=== PATIENT | male | born 1955 | race Caucasian/White ===

== ENCOUNTER 2018-10-03 15:09 | Observation (INO) | payer MEDICAID, OTHER ==
[2018-10-03 15:32] LABS: #Basophils 0.1 thou/uL (0.0-0.2); #Eosinphils 0.2 thou/uL (0.0-0.7); #Monocytes 0.4 thou/uL (0.11-0.59); #Neutrophils 4.5 thou/uL (1.40-6.50); %Basophils 0.9 % (0.0-1.0); %Eosinophils 3.2 % (0.0-10.0); %Lymphocytes 27.6 % (21.0-51.0); %Monocytes 6.1 % (0.0-10.0); %Neutrophils 62.2 % (42.0-75.0); Hemoglobin 14.9 g/dL (14.0-18.0); Mean Corpuscular HGB CONC 34.3 g/dL (32.0-36.0); Mean Corpuscular Hemoglobin 31.7 pg (27.0-31.0); Mean Corpuscular Volume 92.4 fL (78.0-98.0); Platelet Count 148 thou/uL (130-400); RBC Distribution Width 12.3 % (11.5-14.5); Red Blood Cell (RBC) Count 4.71 mill/uL (4.70-6.10); White Blood Cell (WBC) Count 7.3 thou/uL (4.8-10.8)
[2018-10-03 15:52] LABS: ALT (SGPT) 29 U/L (8-55); AST (SGOT) 23 U/L (5-34); Alkaline Phosphatase 79 U/L (40-150); Anion Gap 12 mmol/L (10-20); BUN (Urea Nitrogen) 12 mg/dL (8.4-25.7); Bilirubin, Total 1.1 mg/dL (0.2-1.2); CK (CPK) 69 U/L (30-200); Calc. Creatinine Clearance 0 mL/min (70-130); Calcium 9.3 mg/dL (7.8-10.44); Carbon Dioxide 26 mmol/L (23-31); Chloride 101 mmol/L (98-107); Estimated GFR-MDRD 72; Globulin 4.1 g/dL (2.4-3.5); Glucose 133 mg/dL (80-115); Lipase 21 U/L (8-78); Potassium 3.8 mmol/L (3.5-5.1); Protein, Total 8.1 g/dL (5.8-8.1); Sodium 135 mmol/L (136-145)
--- NOTE | 2018-10-03 15:57 | RAD ---
CHEST 1 VIEW: Date: 10/03/18 HISTORY: Chest pain. COMPARISON: None. FINDINGS: Lungs are clear. No pneumothorax or effusion. Cardiac silhouette and mediastinal contours within norm al limits. IMPRESSION: No acute intrathoracic abnormality. POS: [facility]
[2018-10-03] MEDS ORDERED: Iopamidol 370 76% 100 ML VIAL ONE (17:09)
[2018-10-03] MEDS ORDERED: Nitroglycerin 2% Ointment 1 INCH/1 GM Packet ONE (18:25)
--- NOTE | 2018-10-03 19:49 | CT ---
CTA CHEST WITH CONTRAST WITH 3D VOLUME RENDERING 10/03/18 No prior imaging comparison. INDICATION: Epigastric and substernal chest pain. FINDINGS: There is limited evaluation of the pulmonary arteries due to a generalized heterogeneous contrast kwame us. No definite large focal filling defect identified. No lobar consolidation of either lung. No evid ence of pleural effusion or pneumothorax. Thoracic aorta is of normal caliber. There is incidental no te of a cirrhotic morphology of the liver. There are rounded/ovoid regions of hypodensity involving t he left hepatic lobe which demonstrate Hounsfield units of cysts, although are incompletely assessed on the basis of this exam. There is a generalized heterogeneous density of the imaged portions of the cirrhotic liver. Scattered osseous degenerative changes. IMPRESSION: 1. Generalized heterogeneity of the contrast bolus does limit the evaluation for detection of pu lmonary emboli. No definite large central filling defect identified within limitations. 2. Incidental note of cirrhotic morphology with hypodensities demonstrating Hounsfield units of cysts and a diffuse heterogeneous density of the liver. Recommend followup with gastroenterology cons ultation as well as dedicated imaging followup. Code T POS: [facility]
[2018-10-03] MEDS ORDERED: Acetaminophen 325 MG TAB PO PRN ×3 (20:30→22:19)
[2018-10-03 20:33] VITALS: BMI 43.4
[2018-10-03 21:03] LABS: Cardiac Risk 5.9 (Less than 4.5)
[2018-10-03 21:09] LABS: Troponin I Less than 0.010 ng/mL (< 0.028)
[2018-10-03] MEDS ORDERED: Senokot S 8.6-50 MG TAB PO PRN (22:11)
[2018-10-03] MEDS ORDERED: Dextrose 5% in Water 1,000 ML IV PRN (22:11)
[2018-10-03] MEDS ORDERED: Nitroglycerin 0.4 MG TAB (25 Tab Bottle) PO PRN (22:11)
[2018-10-03] MEDS ORDERED: Dextrose 50% Abboject 50 ML SYRINGE SLOW IVP PRN (22:11)
[2018-10-03] MEDS ORDERED: Guaifenesin DM 100-10/5 ML UDCUP PO PRN (22:11)
[2018-10-03] MEDS ORDERED: Ondansetron ODT 4 MG TAB SL PRN (22:21)
[2018-10-03] MEDS ORDERED: Ondansetron PF 4 MG/2 ML Vial IVP PRN (22:21)
[2018-10-03] MEDS ORDERED: hydrALAZINE 20 MG/ML VIAL SLOW IVP PRN (22:22)
[2018-10-03] MEDS ORDERED: Pantoprazole 40 MG VIAL IVP SCH (22:30)
[2018-10-03] MEDS ORDERED: Morphine 4 MG/ML VIAL SLOW IVP SCH (22:30)
[2018-10-03] MEDS: Albuterol Sulfate 1.25 MG/3 ML NEB NEB SCH (22:50)
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
[2018-10-04 07:15] LABS: Anion Gap 12 mmol/L (10-20); BUN (Urea Nitrogen) 12 mg/dL (8.4-25.7); Calc. Creatinine Clearance 186 mL/min (70-130); Calcium 8.8 mg/dL (7.8-10.44); Carbon Dioxide 25 mmol/L (23-31); Cardiac Risk 5.9 (Less than 4.5); Chloride 102 mmol/L (98-107); Cholesterol 154 mg/dl (< 200 Desired); Estimated GFR-MDRD 89; Glucose 98 mg/dL (80-115); HDL Cholesterol 26 mg/dL (>60 Neg Risk); LDL Cholesterol, Calculated 100 mg/dL; Potassium 3.3 mmol/L (3.5-5.1); Sodium 136 mmol/L (136-145); Triglycerides 138 mg/dL (Less than 150)
[2018-10-04 07:34] LABS: #Eosinphils 0.2 thou/uL (0.0-0.7); #Lymphocytes 1.6 thou/uL (1.20-3.40); #Monocytes 0.4 thou/uL (0.11-0.59); #Neutrophils 2.9 thou/uL (1.40-6.50); %Basophils 0.2 % (0.0-1.0); %Eosinophils 3.2 % (0.0-10.0); %Lymphocytes 31.3 % (21.0-51.0); %Monocytes 7.3 % (0.0-10.0); Hemoglobin 13.5 g/dL (14.0-18.0); MDiff Complete? YES; Mean Corpuscular HGB CONC 34.2 g/dL (32.0-36.0); Mean Corpuscular Hemoglobin 31.6 pg (27.0-31.0); Mean Corpuscular Volume 92.4 fL (78.0-98.0); Mean Platelet Volume 8.5 fL (7.4-10.4); PLT Morphology Comment Appears Decreased; Platelet Count 109 thou/uL (130-400); RBC Distribution Width 12.3 % (11.5-14.5); Red Blood Cell (RBC) Count 4.27 mill/uL (4.70-6.10)
[2018-10-04] MEDS: Albuterol Sulfate 1.25 MG/3 ML NEB NEB SCH ×3 (07:47→23:47)
[2018-10-04] MEDS ORDERED: Potassium Chloride 20 MEQ TAB PO SCH (08:00)
[2018-10-04] MEDS: Pantoprazole 40 MG VIAL IVP SCH ×2 (08:05→21:13)
[2018-10-04] MEDS: Aspirin 325 MG TAB PO SCH (08:06)
[2018-10-04] MEDS: busPIRone HCl 5 MG TAB PO SCH ×3 (08:06→21:07)
[2018-10-04] MEDS: levETIRAcetam 500 MG TAB PO SCH (08:06)
[2018-10-04] MEDS: Venlafaxine HCl XR 150 MG CAP PO SCH (08:06)
[2018-10-04] MEDS: Enoxaparin Sodium 40 MG/0.4 ML SYRINGE SC SCH (08:07)
[2018-10-04] MEDS ORDERED: levETIRAcetam 500 mg/5 ml Oral Solution PO SCH (09:00)
[2018-10-04] MEDS ORDERED: Metoprolol Tartrate 25 MG TAB PO SCH (09:00)
[2018-10-04] MEDS ORDERED: Regadenoson 0.4 MG/5 ML SYRINGE ONE (09:25)
[2018-10-04] MEDS: Propranolol 40 MG TAB PO SCH ×2 (12:07→21:10)
[2018-10-04] MEDS: metFORMIN 500 MG TAB PO SCH ×2 (12:07→12:13)
[2018-10-04] MEDS: HumaLOG 300 UNITS/3 ML VIAL SC PRN ×2 (12:08→17:16)
[2018-10-04] MEDS: glipiZIDE 10 MG TAB PO SCH (12:08)
--- NOTE | 2018-10-04 16:58 | PDOC.PN ---
- Subjective Encounter Start Date: 10/04/18 Encounter Start Time: 16:43 Patient lying in bed, he reports feeling better. Pain is improved. Denies n/v/ d. He underwent first half of stress test this morning. - Objective Resuscitation Status - Order Detail: 10/03/18 22:08 Resuscitation Status Routine Resuscitation Status: FULL: Full Resuscitation MAR Reviewed: Yes Vital Signs & Weight: Vital Signs (12 hours) Temp Pulse Resp BP BP Pulse Ox 10/04/18 15:35 58 L 18 130/80 10/04/18 15:04 60 20 94 L 10/04/18 15:02 98.3 F 60 12 195/92 H 93 L 10/04/18 12:00 97.8 F 72 18 154/80 H 93 L 10/04/18 08:30 97.7 F 59 L 20 156/88 H 97 10/04/18 07:53 96 10/04/18 07:47 62 20 96 10/04/18 04:58 98.2 F 57 L 18 151/78 H 92 L Weight Weight 329 lb 6.4 oz I&O: 10/03/18 10/04/18 10/05/18 06:59 06:59 06:59 Intake Total 660 240 Output Total 400 803 Balance 260 -563 Result Diagrams: 10/04/18 06:18 10/04/18 06:17 Additional Labs: Accuchecks 10/04/18 10/04/18 10/03/18 11:08 04:58 20:48 POC Glucose 249 H 90 101 Radiology Reviewed by me: Yes EKG Reviewed by me: Yes Phys Exam - Physical Examination HEENT: PERRLA, moist MMs, sclera anicteric, oral pharynx no lesions Neck: no nodes, no JVD, full ROM Respiratory: no wheezing, no rales, no rhonchi, clear to auscultation bilateral Cardiovascular: RRR, no significant murmur, no rub Gastrointestinal: soft, non-tender, no distention, positive bowel sounds Musculoskeletal: no edema, pulses present Neurological: non-focal, normal sensation, moves all 4 limbs Lymphatic: no nodes Psychiatric: normal affect, A&O x 3 Skin: no rash, normal turgor, cap refill <2 seconds Dx/Plan (1) Hypertension Code(s): I10 - ESSENTIAL (PRIMARY) HYPERTENSION Status: Acute (2) Chest pain Code(s): R07.9 - CHEST PAIN, UNSPECIFIED Status: Acute (3) Diabetes Code(s): E11.9 - TYPE 2 DIABETES MELLITUS WITHOUT COMPLICATIONS Status: Acute (4) Seizure disorder Code(s): G40.909 - EPILEPSY, UNSP, NOT INTRACTABLE, WITHOUT STATUS EPILEPTICUS Status: Acute - Plan cont current plan of care, DVT proph w/lovenox, DVT proph w/SCDs * Continue current medical management * Await second part of stress test * Continue to monitor sugars, labs and vitals * Further changes pending clinical findings
[2018-10-04] MEDS ORDERED: Amlodipine 5 MG TAB PO SCH (21:15)
[2018-10-04] MEDS ORDERED: traMADol HCl 50 MG TAB PO PRN (21:15)
[2018-10-05] MEDS: Venlafaxine HCl XR 150 MG CAP PO SCH (08:43)
[2018-10-05] MEDS: Aspirin 325 MG TAB PO SCH (08:43)
[2018-10-05] MEDS: Pantoprazole 40 MG VIAL IVP SCH (08:43)
[2018-10-05] MEDS: busPIRone HCl 5 MG TAB PO SCH (08:43)
[2018-10-05] MEDS: levETIRAcetam 500 MG TAB PO SCH (08:43)
[2018-10-05] MEDS: Enoxaparin Sodium 40 MG/0.4 ML SYRINGE SC SCH (08:43)
[2018-10-05] MEDS: metFORMIN 500 MG TAB PO SCH (08:44)
[2018-10-05] MEDS: glipiZIDE 10 MG TAB PO SCH (08:44)
[2018-10-05] MEDS ORDERED: Amlodipine 5 MG TAB PO SCH (09:00)
--- NOTE | 2018-10-05 09:34 | NM ---
NUCLEAR MEDICINE CARDIAC PERFUSION EXAMINATION WITH EJECTION FRACTION. HISTORY: A 63-year-old male with chest pain, hypertension, and diabetes. TECHNIQUE: A nuclear medicine cardiac perfusion examination was performed in standard fashion. Rest images were obtained using 33 mCi of Technetium 99m sestamibi. Stress images were obtained using 30.5 mCi of Te chnetium 99m sestamibi and LexiScan. FINDINGS: Tomographic images showed no fixed or reversible perfusion defects. Gated images show normal wall mo tion with an ejection fraction of 69%. EDV is 125 mL. LHR is 0.4. TID is 1.06. IMPRESSION: No evidence of ischemia. POS: [facility]
[2018-10-05] MEDS: Albuterol Sulfate 1.25 MG/3 ML NEB NEB SCH (09:51)
[2018-10-05 12:13] VITALS: BP 176/83; TEMP 97.5
--- NOTE | 2018-10-06 05:29 | DIS ---
DATE OF ADMISSION: 10/03/2018 DATE OF DISCHARGE: 10/05/2018 DISCHARGE DIAGNOSES: 1. Chest pain, noncardiac. 2. Diabetes mellitus type 2, stable. 3. Obesity, stable. 4. Generalized seizures, stable. 5. Anxiety disorder, stable. CONSULTATIONS: None. LABORATORY DATA: WBC 5.0, RBC 4.27, hemoglobin 13.5, platelet 109. D-dimer 0.44 on admission, sodium 136, potassium 3.3, anion gap 12, creatinine 0.87, estimated GFR 89, glucose 188 prior to discharge. Triglycerides 138, cholesterol 154, LDL 100 , HDL 26. Lipase 21. Troponin less than 0.010 x2. BNP 40.3. AST 23, ALT 29. PROCEDURES: Cardiolite stress test, which showed no fixed or reversible perfusion defects with normal wall motion with an ejection fraction of 69%. No evidence of ischemia. DIAGNOSTIC IMAGING: Chest x-ray showed no acute intrathoracic abnormality. CTA chest with contrast showed no definite large focal filling defect with no lobar consolidation of either lung, no evidence of a pleural effusion or pneumothorax, there was an incidental finding of a cirrhotic morphology with hypodensities demonstrating Hounsfield units of cyst, diffuse heterogeneous density of the liver with a recommended followup with Gastroenterology consultation as well as dedicated imaging followup. HOSPITAL COURSE: Mr. Orellana is a pleasant 63-year-old male who had presented to [facility] with complaints of retrosternal chest pain that started the morning of 10/03/2018, he had stated that he had some Cheetos the night prior. He had stated that the pain seemed to worsen with movement along with cough and deep breathing. He denied any fever or chills. He had denied any shortness of breath or further abdominal pain. He denied any nausea or vomiting. He had denied any prior cardiac workup in the past. He was started on IV Protonix during hospital course and seemed to tolerate well. Chest x-ray was obtained and found no abnormalities at this time. CTA of chest was also performed and showed no evidence of a central pulmonary emboli or no infiltrates. Cardiac enzymes were found to be normal x2. There was incidental finding on CTA for a cirrhotic morphology in his liver, it was recommended that he follow up with primary care physician and seek a referral to Gastroenterology as outpatient. He had verbalized his understanding of this. During hospital course, his chest pain resolved with the use of Protonix 40 mg, and it was recommended he stay on this post discharge. His home medication of Propranolol was discontinued and he was started on Amlodipine 5mg. He underwent a 2-day nuclear stress test, which found no fixed or reversible perfusion defects. It also showed a normal wall motion and ejection fraction of 69%. He was seen and examined prior to discharge. He had no further complaints of chest pain, shortness of breath, or abdominal pain. He was educated on his discharge plan and to follow up with his primary care physician in 1 to 2 weeks. He was also instructed to continue on Protonix twice daily. Due to the patient's risk factors, he was placed on aspirin 81 mg daily and tolerated well throughout hospital course. He was also explained to continue this as outpatient. He had verbalized his understanding for discharge plan and he was deemed medically stable for discharge home on 10/05/2018. DISCHARGE MEDICATIONS: 1. Amlodipine 5mg p.o. daily. 2. Metformin 1000 mg p.o. daily. 3. Levetiracetam 750 mg p.o. daily. 4. Glipizide 10 mg p.o. daily. 5. Buspirone 15 mg p.o. t.i.d. 6. Venlafaxine 150 mg p.o. daily. 7. Aspirin 81 mg daily. 8. Protonix 40 mg p.o. twice daily. FOLLOWUP: The patient is to follow up with his primary care physician Dr. Michael Heller in 1 to 2 weeks. CONDITION ON DISCHARGE: Stable. ACTIVITY: As tolerated. DIET: Diabetic. DISPOSITION: Home on 10/05/2018. Job ID: [id number] [facility]
--- NOTE | 2018-10-10 23:00 | EKG ---
Test Reason : CP Blood Pressure : / mmHG Vent. Rate : 059 BPM Atrial Rate : 059 BPM P-R Int : 178 ms QRS Dur : 098 ms QT Int : 452 ms P-R-T Axes : 015 -19 058 degrees QTc Int : 447 ms Sinus bradycardia Otherwise normal ECG Confirmed by RYANN ALMAGUER, ALEX ([id number]), visual effects editor JOSE DENNY ([id number]) on 10/10/2018 10:59:03 PM Referred By: Confirmed By:ALEX GARZON MD
== END 2018-10-05 14:33 | disposition home or self-care (01) ==
LOC: ERS 15:09 → 2SW 20:14
PROVIDERS: ADMIT Family Medicine; ATTEND Family Medicine
DX: R07.89 Other chest pain (principal); E11.9 Type 2 diabetes mellitus without complications; E66.9 Obesity, unspecified; Z68.41 Body mass index [BMI] 40.0-44.9, adult; G40.909 Epilepsy, unspecified, not intractable, without status epilepticus; F41.9 Anxiety disorder, unspecified; Z88.1 Allergy status to other antibiotic agents; Z90.89 Acquired absence of other organs; Z79.84 Long term (current) use of oral hypoglycemic drugs; Z79.82 Long term (current) use of aspirin; Z79.899 Other long term (current) drug therapy
CPT/HCPCS: 36415; 36416; 71045; 71275; 78452; 80048; 80053; 80061; 82550; 83690; 83880; 84484; 85025; 85379; 90471; 90686; 90732; 93005; 93017; 94640; 94760; 96360; 96361; 96372; 96374; 96375; 96376; A9500; C9113; G0008; G0009; G0378; J1650; J2270; J2785

== ENCOUNTER 2019-01-24 19:29 | Emergency (ER) | payer OTHER ==
[2019-01-24 21:38] LABS: ALT (SGPT) 29 U/L (8-55); AST (SGOT) 22 U/L (5-34); Albumin 4.1 g/dL (3.4-4.8); Alkaline Phosphatase 94 U/L (40-150); Anion Gap 15 mmol/L (10-20); BUN (Urea Nitrogen) 25 mg/dL (8.4-25.7); Bilirubin, Total 0.7 mg/dL (0.2-1.2); Calc. Creatinine Clearance 0 mL/min (70-130); Calcium 9.9 mg/dL (7.8-10.44); Carbon Dioxide 27 mmol/L (23-31); Chloride 100 mmol/L (98-107); Estimated GFR-MDRD 43; Globulin 4.2 g/dL (2.4-3.5); Glucose 148 mg/dL (80-115); Potassium 4.5 mmol/L (3.5-5.1); Protein, Total 8.3 g/dL (5.8-8.1); Sodium 137 mmol/L (136-145)
--- NOTE | 2019-01-24 23:08 | CT ---
CT NECK SOFT TISSUES WITH IV CONTRAST: History: Spider bite two days ago. Pain in the right side of the neck. FINDINGS: There is induration of the subcutaneous fat and skin thickening in the right mid and lower neck. No a bnormally large fluid collections seen to suggest abscess formation. The carotid and submandibular glands are normal. No cervical lymphadenopathy is seen. The visualized paranasal sinuses are well aerated. The airway is patent. There is a 9 mm low density lesion in the left lobe of the parotid gland which would be better evaluated with an ultrasound. 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 There are degenerativ e changes in the spine. Upper lung owen are unremarkable. IMPRESSION: Cellulitis in the right side of the neck without evidence of abscess formation. This exam was interpreted in consultation with Dr Rl Peralta (neurorad) who concurs. POS: [facility]
== END 2019-01-24 23:25 | disposition home or self-care (01) ==
LOC: ERS 19:29
DX: L02.11 Cutaneous abscess of neck (principal); F41.9 Anxiety disorder, unspecified; F32.9 Major depressive disorder, single episode, unspecified; E11.9 Type 2 diabetes mellitus without complications; I10 Essential (primary) hypertension; E66.9 Obesity, unspecified; Z87.891 Personal history of nicotine dependence
CPT/HCPCS: 10060; 36415; 70490; 80053

== ENCOUNTER 2019-04-10 23:56 | Emergency (ER) | payer OTHER ==
[2019-04-11] MEDS ORDERED: Ondansetron PF 4 MG/2 ML Vial ONE (00:37)
[2019-04-11] MEDS ORDERED: Loperamide HCl 2 MG CAP ONE (00:37)
[2019-04-11 00:41] LABS: #Eosinphils 0.1 thou/uL (0.0-0.7); #Lymphocytes 1.7 thou/uL (1.20-3.40); #Monocytes 0.5 thou/uL (0.11-0.59); #Neutrophils 6.6 thou/uL (1.40-6.50); %Basophils 0.4 % (0.0-1.0); %Eosinophils 1.3 % (0.0-10.0); %Lymphocytes 18.4 % (21.0-51.0); %Neutrophils 73.9 % (42.0-75.0); Hemoglobin 14.3 g/dL (14.0-18.0); Mean Corpuscular HGB CONC 32.7 g/dL (32.0-36.0); Mean Corpuscular Hemoglobin 30.4 pg (27.0-31.0); Mean Platelet Volume 9.1 fL (7.4-10.4); Platelet Count 158 thou/uL (130-400); RBC Distribution Width 12.5 % (11.5-14.5)
[2019-04-11 01:04] LABS: ALT (SGPT) 31 U/L (8-55); AST (SGOT) 21 U/L (5-34); Albumin 3.8 g/dL (3.4-4.8); Alkaline Phosphatase 78 U/L (40-150); Anion Gap 14 mmol/L (10-20); BUN (Urea Nitrogen) 21 mg/dL (8.4-25.7); Calc. Creatinine Clearance 0 mL/min (70-130); Calcium 9.7 mg/dL (7.8-10.44); Carbon Dioxide 24 mmol/L (23-31); Chloride 102 mmol/L (98-107); Estimated GFR-MDRD 58; Globulin 3.5 g/dL (2.4-3.5); Glucose 208 mg/dL (80-115); Potassium 3.7 mmol/L (3.5-5.1); Protein, Total 7.3 g/dL (5.8-8.1); Sodium 136 mmol/L (136-145)
--- NOTE | 2019-04-11 09:09 | CT ---
ABDOMEN AND PELVIS CT WITH CONTRAST: Date: 04/11/19 INDICATION: Generalized abdominal pain. No prior comparison. FINDINGS: No significant abnormality at the lung bases. There is cirrhotic morphology of the liver. Spleen is e nlarged. Round hypodense foci of the lateral segment left hepatic lobe demonstrating Hounsfield units of cyst. No evidence of adrenal mass or hydronephrosis. Pancreas is atrophic. Bowel is incompletely evaluated without enteric contrast. No disseminated free air. There is colonic diverticulosis. Vascul ar calcification is seen. No aneurysmal dilatation of the abdominal aorta. The osseous structures are intact. IMPRESSION: 1. Evidence of cirrhosis and portal hypertension. Gallbladder surgically absent. 2. Incomplete assessment of bowel without enteric contrast. 3. Hepatic cysts. POS: [facility]
[2019-04-11] MEDS ORDERED: Iopamidol 370 76% 100 ML VIAL ONE (11:59)
== END 2019-04-11 02:29 | disposition home or self-care (01) ==
LOC: ERS 23:56
DX: R11.2 Nausea with vomiting, unspecified (principal); R19.7 Diarrhea, unspecified; R10.9 Unspecified abdominal pain; E66.9 Obesity, unspecified; E11.9 Type 2 diabetes mellitus without complications; I10 Essential (primary) hypertension; Z79.84 Long term (current) use of oral hypoglycemic drugs; Z79.899 Other long term (current) drug therapy
CPT/HCPCS: 36415; 74177; 80053; 85025; 96361; 96372; 96374; J0500; J2405; Q9967

== ENCOUNTER 2019-11-01 09:39 | Emergency (ER) | payer OTHER ==
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
[2019-11-01 10:56] LABS: #Eosinphils 0.1 thou/uL (0.0-0.7); #Lymphocytes 1.5 thou/uL (1.20-3.40); #Monocytes 0.4 thou/uL (0.11-0.59); #Neutrophils 2.7 thou/uL (1.40-6.50); %Basophils 0.4 % (0.0-1.0); %Eosinophils 3.1 % (0.0-10.0); %Lymphocytes 31.9 % (21.0-51.0); %Monocytes 7.5 % (0.0-10.0); %Neutrophils 57.1 % (42.0-75.0); Mean Corpuscular HGB CONC 32.6 g/dL (32.0-36.0); Mean Corpuscular Hemoglobin 29.8 pg (27.0-31.0); Mean Corpuscular Volume 91.4 fL (78.0-98.0); Mean Platelet Volume 9.2 fL (7.4-10.4); Platelet Count 129 thou/uL (130-400); RBC Distribution Width 12.9 % (11.5-14.5); Red Blood Cell (RBC) Count 4.72 mill/uL (4.70-6.10); White Blood Cell (WBC) Count 4.7 thou/uL (4.8-10.8)
[2019-11-01] MEDS ORDERED: Ondansetron PF 4 MG/2 ML Vial ONE (10:57)
[2019-11-01] MEDS ORDERED: Morphine 4 MG/ML VIAL ONE (10:57)
[2019-11-01 11:23] LABS: ALT (SGPT) 24 U/L (8-55); AST (SGOT) 20 U/L (5-34); Alkaline Phosphatase 78 U/L (40-110); Anion Gap 13 mmol/L (10-20); BUN (Urea Nitrogen) 13 mg/dL (8.4-25.7); Bilirubin, Total 0.5 mg/dL (0.2-1.2); Calc. Creatinine Clearance 0 mL/min (70-130); Calcium 8.9 mg/dL (7.8-10.44); Carbon Dioxide 26 mmol/L (23-31); Chloride 102 mmol/L (98-107); Estimated GFR-MDRD 73; Globulin 3.4 g/dL (2.4-3.5); Glucose 255 mg/dL (80-115); Lipase 30 U/L (8-78); Potassium 3.9 mmol/L (3.5-5.1); Protein, Total 7.4 g/dL (5.8-8.1); Sodium 137 mmol/L (136-145)
[2019-11-01 11:45] LABS: Bilirubin Negative (Negative); Blood, Urine Negative (Negative); Clarity Clear (Clear); Glucose, Urine (Dipstick) Greater than 1000 mg/dL (Negative); Leukocyte Negative Leu/uL (Negative); Nitrite Negative (Negative); Protein, Urine (Dipstick) 20 mg/dL (Neg-Trace)
--- NOTE | 2019-11-01 12:04 | CT ---
CHEST CT WITH CONTRAST ABDOMEN CT WITH CONTRAST PELVIC CT WITH CONTRAST LIMITED CT OF THE THORACIC AND LUMBAR SPINE: HISTORY: Left-sided abdominal pain. Patient fell yesterday. Correlation: None. COMPARISON: 04/11/2019. FINDINGS: Chest CT: Mediastinum: No mass, lymphadenopathy or hematoma. Aorta: Normal caliber. No periaortic fat stranding. Heart: Normal heart size. No significant pericardial fluid. Trachea and central bronchi: Patent. Pleural spaces: No pleural effusion. Right lung: No masses, consolidation, contusion. Left lung:No masses, consolidation or contusion. Linear opacities in the lingula and left lower lobe likely represent atelectasis or scar. Pneumothorax: None. Abdomen CT: Gallbladder: Surgically absent. Portal vein: Patent. Liver: Markedly enlarged liver with nodularity. Redemonstration of hypodensities in the left hepatic lobe which have been previously shown to be cysts. Largest of the 2 cysts measures 4.8 x 5.0 cm. The smaller cyst measures 3.6 x 3.2 cm. No enhancing masses within the liver.. Spleen: Appropriate enhancement. Pancreas: Mild atrophy. No abnormal enhancement. Adrenal glands: Appropriate enhancement. Lymphadenopathy: Nonenlarged gastrohepatic lymph nodes. No retrocrural or periportal lymphadenopathy. Kidneys: Symmetric enhancement. Bilaterally no obstructive uropathy. Mesentery: No mass, lymphadenopathy, free air or free fluid. Alimentary canal: Limited evaluation by the lack of oral contrast. No evidence of bowel obstruction. Ileocecal junction is normal. Normal caliber appendix. Scattered fecal material in a nondistended, nondilated colon. Occasional diverticulum. No diverticulitis. Pelvis CT: No pelvic mass, lymphadenopathy, free air or free fluid. Urinary bladder: Unremarkable. Osseous structures: Sternum and clavicles are intact. Scapula are intact. No evidence of a displaced rib fracture. No cor tical buckling of the lateral left seventh rib. Correlate clinically. Visualized bony pelvis is intact. Sacral ala ARE preserved. No evidence of AN obturator ring fracture. Iliac wings are intact. Limited CT of the thoracic and lumbar spine: There appears to be postsurgical change in the lumbosacral junction. No evidence of an acute lumbar s pine fracture. Mild irregularity with loss of vertebral body height from T4 through T8. Sclerosis favors a chronic process. Vacuum disc phenomenon is noted at these levels. Correlate for point tender ness. If There is concern for acute injury, consider MRI. IMPRESSION: 1. No posttraumatic change in the abdomen or pelvis. 2. Minimal cortical buckling of the left seventh rib. Possible bone bruise/nondisplaced fracture leonela ot be excluded. Correlate for point tenderness. Transcribed Date/Time: 11/01/2019 1:11 PM
[2019-11-01] MEDS ORDERED: Iopamidol-370 76% 500 ML 1 ML ONE (14:32)
== END 2019-11-01 13:27 | disposition home or self-care (01) ==
LOC: ERS 09:39
DX: S22.32XA Fracture of one rib, left side, initial encounter for closed fracture (principal); R10.814 Left lower quadrant abdominal tenderness; I10 Essential (primary) hypertension; E66.9 Obesity, unspecified; E11.9 Type 2 diabetes mellitus without complications; F41.9 Anxiety disorder, unspecified; F32.9 Major depressive disorder, single episode, unspecified; Z87.891 Personal history of nicotine dependence; Z79.899 Other long term (current) drug therapy; Z79.84 Long term (current) use of oral hypoglycemic drugs; W01.10XA Fall on same level from slipping, tripping and stumbling with subsequent striking against unspecified object, initial encounter
CPT/HCPCS: 71046; 71260; 74177; 80053; 80185; 81003; 83690; 84484; 85025; 93005; 96374; 96375; J2270; J2405; Q9967

== ENCOUNTER 2022-08-13 20:05 | Emergency (ER) | payer OTHER ==
[~2022-08-13 20:05] MED LIST: Iopamidol-370 76% 500 ML 1 ML ONE
[2022-08-13] MEDS ORDERED: Morphine 4 MG/ML VIAL ONE (21:08)
[2022-08-13] MEDS ORDERED: Ondansetron PF 4 MG/2 ML Vial ONE (21:08)
[2022-08-13 21:33] LABS: Hemoglobin 13.9 g/dL (14.0-18.0); Mean Corpuscular HGB CONC 33.7 g/dL (32.0-36.0); Mean Corpuscular Hemoglobin 31.9 pg (27.0-31.0); Mean Corpuscular Volume 94.7 fl (78.0-98.0); RBC Distribution Width 12.5 % (11.5-14.5); Red Blood Cell (RBC) Count 4.36 mill/uL (4.70-6.10); White Blood Cell (WBC) Count 4.4 10x3/uL (4.8-10.8)
[2022-08-13 21:48] LABS: #Basophils 0.1 thou/uL (0.0-0.2); #Eosinphils 0.1 thou/uL (0.0-0.7); #Lymphocytes 0.9 thou/uL (1.20-3.40); #Monocytes 0.3 thou/uL (0.11-0.59); %Basophils 1.4 % (0.0-1.0); %Eosinophils 2.2 % (0.0-10.0); %Lymphocytes 21.2 % (21.0-51.0); %Monocytes 6.6 % (0.0-10.0); %Neutrophils 68.6 % (42.0-75.0); Mean Platelet Volume 9.5 fL (7.4-10.4); Platelet Count 116 10x3/uL (130-400)
[2022-08-13 21:53] LABS: Anion Gap 13 mmol/L (10-20); BUN (Urea Nitrogen) 14 mg/dL (8.4-25.7); Bilirubin, Total 0.6 mg/dL (0.2-1.2); Calc. Creatinine Clearance 0 mL/min (70-130); Calcium 9.2 mg/dL (7.8-10.44); Carbon Dioxide 28 mmol/L (23-31); Chloride 97 mmol/L (98-107); Estimated GFR 61; Glucose 391 mg/dL (80-115); Potassium 3.7 mmol/L (3.5-5.1); Protein, Total 7.2 g/dL (5.8-8.1); Sodium 134 mmol/L (136-145)
[2022-08-13 21:54] LABS: ALT (SGPT) 30 U/L (8-55); AST (SGOT) 28 U/L (5-34); Albumin 3.5 g/dL (3.4-4.8); Alkaline Phosphatase 82 U/L (40-110); Globulin 3.7 g/dL (2.4-3.5)
[2022-08-13 22:04] LABS: Large Platelets SLIGHT; MDiff Complete? YES; Platelet Morphology Comment Appears Decreased; RBC Morphology Normal
== END 2022-08-14 00:09 | disposition home or self-care (01) ==
LOC: ERS 20:05
DX: S22.31XA Fracture of one rib, right side, initial encounter for closed fracture (principal); S09.90XA Unspecified injury of head, initial encounter; E11.9 Type 2 diabetes mellitus without complications; I10 Essential (primary) hypertension; W19.XXXA Unspecified fall, initial encounter; Z87.891 Personal history of nicotine dependence; Z79.84 Long term (current) use of oral hypoglycemic drugs; Z79.899 Other long term (current) drug therapy
CPT/HCPCS: 36415; 70450; 71260; 80053; 85025; 96374; 96375; J2270; J2405; Q9967

== ENCOUNTER 2023-07-27 19:28 | Emergency (ER) | payer MEDICARE, MEDICAID ==
[2023-07-27] MEDS ORDERED: fentaNYL 50 mcg/mL 1 mL Vial ONE (19:44)
[2023-07-27] MEDS ORDERED: Ketamine In 0.9 % NaCl 50 MG/5 ML SYRINGE ONE (20:14)
== END 2023-07-27 21:43 | disposition home or self-care (01) ==
LOC: ERS 19:28
DX: S43.015A Anterior dislocation of left humerus, initial encounter (principal); E11.9 Type 2 diabetes mellitus without complications; I10 Essential (primary) hypertension; Z87.891 Personal history of nicotine dependence; Z79.84 Long term (current) use of oral hypoglycemic drugs; Z79.899 Other long term (current) drug therapy; W10.8XXA Fall (on) (from) other stairs and steps, initial encounter
CPT/HCPCS: 73030; 73060; J3010; 23650; 96374; 96375; 99152; 99153; J3490

== ENCOUNTER 2023-08-03 14:26 | Emergency (ER) | payer MEDICARE, OTHER ==
[2023-08-03] MEDS ORDERED: Cyclobenzaprine 10 MG TAB ONE (15:18)
[2023-08-03] MEDS ORDERED: Ketorolac Tromethamine 30 MG/ML VIAL ONE (15:19)
== END 2023-08-03 16:20 | disposition home or self-care (01) ==
LOC: ERS 14:26
DX: S43.005A Unspecified dislocation of left shoulder joint, initial encounter (principal); R20.2 Paresthesia of skin; E11.9 Type 2 diabetes mellitus without complications; I10 Essential (primary) hypertension; Z87.891 Personal history of nicotine dependence; Z79.84 Long term (current) use of oral hypoglycemic drugs; Z79.899 Other long term (current) drug therapy; W18.30XA Fall on same level, unspecified, initial encounter
CPT/HCPCS: 96372; 99283; J1885

== ENCOUNTER 2024-02-18 11:00 | Outpatient (CLI) | payer MEDICARE, OTHER | END 2024-02-18 11:01 | disposition home or self-care (01) | LOC: CT 11:00 | DX: R22.1 Localized swelling, mass and lump, neck (principal) | CPT/HCPCS: 70491; 82565 ==